=== PATIENT | male | born 1995 | race American Indian/Alaskan Native ===

== ENCOUNTER 2017-07-12 11:06 | Emergency (ER) | payer MEDICAID, OTHER, SELFPAY ==
[2017-07-12 11:32] VITALS: BP 153/90
--- NOTE | 2017-07-12 12:06 | EDM.PDOC ---
ED HPI GENERAL MEDICAL PROBLEM - General Chief Complaint: Respiratory Problem Stated Complaint: BAD COUGH AND SICK Time Seen by Provider: 07/12/17 12:02 Source of Information: Reports: Patient History Limitations: Reports: No Limitations - History of Present Illness INITIAL COMMENTS - FREE TEXT/NARRATIVE: PT HAS A COUGH WHICH IS KEEPING HIM AWAKE AT NITE. hE HAS NOT SPIKED HIGH TEMPS. Onset: Gradual Duration: Day(s): Location: Reports: Chest, Other (PT HAS A PAINFUL THROAT. ) Associated Symptoms: Reports: Cough, Shortness of Breath - Related Data Allergies Allergy/AdvReac Type Severity Reaction Status Date / Time No Known Allergies Allergy Verified 07/12/17 11:31 Home Meds: Home Meds NK [No Known Home Meds] 10/29/13 [History] Past Medical History - Past Health History Medical/Surgical History: Denies Medical/Surgical History HEENT History: Reports: Other (See Below) Other HEENT History: L lower tooth pain 4 days ago - Past Surgical History Musculoskeletal Surgical History: Reports: Arthroscopic Knee Social & Family History - Tobacco Use Smoking Status *Q: Never Smoker Second Hand Smoke Exposure: No - Caffeine Use Caffeine Use: Reports: Coffee, Energy Drinks - Alcohol Use Days Per Week of Alcohol Use: 0 - Recreational Drug Use Recreational Drug Use: No ED ROS GENERAL - Review of Systems Review Of Systems: See Below Constitutional: Reports: Fever, Chills, Malaise HEENT: Reports: Throat Pain Respiratory: Reports: No Symptoms Cardiovascular: Reports: No Symptoms Endocrine: Reports: No Symptoms GI/Abdominal: Reports: No Symptoms : Reports: No Symptoms ED EXAM, GENERAL - Physical Exam Exam: See Below Free Text/Narrative:: PT ARRIVED WITH A HISTORY OF DOING ALOT OF WHEEZING AND COUGHING MARKEDLY. hE IS RASING YELLOW SPUTUM. Exam Limited By: No Limitations General Appearance: Alert, Anxious Ears: Other ( RT DRUM IS MILDLY INFLAMED) Nose: Normal Inspection Throat/Mouth: Normal Inspection Head: Atraumatic Neck: Normal Inspection Respiratory/Chest: Decreased Breath Sounds, Wheezing Cardiovascular: Regular Rate, Rhythm GI/Abdominal: Soft, Non-Tender (Male) Exam: Deferred Rectal (Males) Exam: Deferred Back Exam: Normal Inspection Extremities: Normal Inspection Neurological: Alert, Oriented, Normal Cognition Course - Vital Signs Last Recorded V/S: Last Vital Signs Temp 36.5 C 07/12/17 11:26 Pulse 63 07/12/17 11:26 Resp 16 07/12/17 11:26 BP 153/90 H 07/12/17 11:26 Pulse Ox 96 07/12/17 11:26 - Orders/Labs/Meds Orders: Active Orders 24 hr Category Date Time Status RT Aerosol Therapy [RC] ASDIRECTED Care 07/12/17 12:09 Active STREP SCRN A RAPID W CULT CONF [RM] Stat Lab 07/12/17 12:06 Received Labs: Laboratory Tests 07/12/17 Range/Units 12:10 WBC 6.5 (4.5-11.0) K/uL RBC 5.68 (4.30-5.90) M/uL Hgb 16.0 H (12.0-15.0) g/dL Hct 46.8 (40.0-54.0) % MCV 82 (80-98) fL MCH 28 (27-31) pg MCHC 34 (32-36) % Plt Count 256 (150-400) K/uL Neut % (Auto) 60 (36-66) % Lymph % (Auto) 27 (24-44) % [place] % (Auto) 9 H (2-6) % Eos % (Auto) 3 (2-4) % Baso % (Auto) 1 (0-1) % Meds: Medications Discontinued Medications Generic Name Dose Route Start Last Admin Trade Name Freq PRN Reason Stop Dose Admin Albuterol 2.5 mg 07/12/17 12:09 07/12/17 12:20 Proventil Neb Soln NEB 07/12/17 12:10 2.5 mg ONETIME ONE Administration - Re-Assessments/Exams Free Text/Narrative Re-Assessment/Exam: 07/12/17 12:22 WBC IS NOT ELEVATED, STREPT IS NEG. Departure - Departure Time of Disposition: 12:22 Disposition: Home, Self-Care 01 Condition: Fair Clinical Impression: Bronchitis - Discharge Information Referrals: PCP,None [Primary Care Provider] - Forms: ED Department Discharge Care Plan Goals: PUSH FLUIDS, COOL MIST HUMIDFIER, ZPACK, ROBITUSSIN AC 2 TSP Q6H PRN FOR COUGH, ALBUTEROL INHALER 2 PUFS QID FOR THE NEXT WEEK. - My Orders Last 24 Hours: My Active Orders 07/12/17 12:06 STREP SCRN A RAPID W CULT CONF [RM] Stat 07/12/17 12:09 RT Aerosol Therapy [RC] ASDIRECTED - Assessment/Plan Last 24 Hours: My Active Orders 07/12/17 12:06 STREP SCRN A RAPID W CULT CONF [RM] Stat 07/12/17 12:09 RT Aerosol Therapy [RC] ASDIRECTED
[2017-07-12] MEDS ORDERED: Albuterol 0.083% 2.5 MG/3 ML Neb Soln NEB ONE (12:09)
== END 2017-07-12 12:35 | disposition home or self-care (01) ==
LOC: JP.ED 11:06
DX: J40 Bronchitis, not specified as acute or chronic (principal); Z98.890 Other specified postprocedural states
CPT/HCPCS: 36415; 85025; 87081; 87430; 94640; 99283; 99284-25

== ENCOUNTER 2020-08-20 09:34 | Emergency (ER) | payer BC, OTHER ==
[2020-08-20 09:51] VITALS: BP 150/105; PULSE 86
--- NOTE | 2020-08-20 10:18 | EDM.PDOC ---
ED HPI GENERAL MEDICAL PROBLEM - General Chief Complaint: General Stated Complaint: HAS COVID. SYMPTOMS WORSENING Time Seen by Provider: 08/20/20 10:02 Source of Information: Reports: Patient, RN Notes Reviewed History Limitations: Reports: No Limitations - History of Present Illness INITIAL COMMENTS - FREE TEXT/NARRATIVE: 25-year-old gentleman presents emergency department a complaint of cough and fatigue he was diagnosed with COVID-19 2 days prior he is requesting a azithromycin treatment Generalized Pain Score (Numeric/FACES): 5 - Related Data Allergies Allergy/AdvReac Type Severity Reaction Status Date / Time No Known Allergies Allergy Verified 07/12/17 11:31 Home Meds: Home Meds NK [No Known Home Meds] 10/29/13 [History] Past Medical History HEENT History: Reports: Other (See Below) Other HEENT History: L lower tooth pain 4 days ago - Past Surgical History Musculoskeletal Surgical History: Reports: Arthroscopic Knee Social & Family History - Tobacco Use Smoking Status *Q: Unknown Ever Smoked - Caffeine Use Caffeine Use: Reports: Coffee, Energy Drinks ED ROS GENERAL - Review of Systems Review Of Systems: See Below Constitutional: Denies: Fever, Chills Respiratory: Reports: Shortness of Breath, Cough Cardiovascular: Reports: Dyspnea on Exertion GI/Abdominal: Reports: No Symptoms ED EXAM, GENERAL - Physical Exam Exam: See Below Exam Limited By: No Limitations General Appearance: Alert, WD/WN, No Apparent Distress Throat/Mouth: Normal Lips, Normal Teeth, Normal Gums, Normal Voice, No Airway Compromise, Inflammation Head: Atraumatic, Normocephalic Neck: Normal Inspection, Supple, Non-Tender, Full Range of Motion Respiratory/Chest: No Respiratory Distress, Lungs Clear, Normal Breath Sounds, No Accessory Muscle Use, Chest Non-Tender Cardiovascular: Regular Rate, Rhythm, No Murmur Course - Vital Signs Last Recorded V/S: Last Vital Signs Temp 96.7 F L 08/20/20 09:46 Pulse 86 08/20/20 09:46 Resp 18 08/20/20 09:46 BP 150/105 H 08/20/20 09:46 Pulse Ox 95 08/20/20 09:46 Departure - Departure Time of Disposition: 10:17 Disposition: Home, Self-Care 01 Condition: Fair Clinical Impression: COVID-19 - Discharge Information Instructions: COVID-19 Frequently Asked Questions, COVID-19: How to Protect Yourself and Others - CDC, Prevent the Spread of COVID-19 if You Are Sick - CDC, COVID-19 Referrals: PCP,None [Primary Care Provider] - Additional Instructions: Continue to use Tylenol and Motrin as needed for headache and body aches, try the Tessalon Perles which can be used to help suppress the cough, return to the emergency department with worsening of symptoms Sepsis Event Note (ED) - Evaluation Sepsis Screening Result: No Definite Risk - Focused Exam Vital Signs: Vital Signs Temp Pulse Resp BP Pulse Ox 08/20/20 09:46 96.7 F L 86 18 150/105 H 95 - Assessment/Plan Plan: Assessment Acuity = acute Site and laterality = viral syndrome Etiology = COVID-19 Manifestations = dyspnea Location of injury = Home Lab values = none Plan Symptomatic care at this time prescription written for Tessalon Perles 200 mg p.o. 3 times daily PRN total #30 return to the emergency department with worsening of symptoms This note was dictated using [employer] voice recognition software please call with any questions on syntax or grammar.
== END 2020-08-20 10:30 | disposition home or self-care (01) ==
LOC: JP.ED 09:34
DX: U07.1 COVID-19 (principal)
CPT/HCPCS: 99283

== ENCOUNTER 2020-12-31 10:18 | Emergency (ER) | payer BC ==
[2020-12-31 10:41] VITALS: BP 152/99; PULSE 89
--- NOTE | 2020-12-31 11:10 | EDM.PDOC ---
ED HPI GENERAL MEDICAL PROBLEM - General Chief Complaint: Cardiovascular Problem Stated Complaint: CHEST PAIN Time Seen by Provider: 12/31/20 11:00 Source of Information: Reports: Patient History Limitations: Reports: No Limitations - History of Present Illness INITIAL COMMENTS - FREE TEXT/NARRATIVE: 25-year-old male concerned of left upper anterior chest pain for the past 4 da ys. It is sore, feels like it is bruised and hurts to move or take a deep breath. No specific trauma, no shortness of breath, no fevers or chills or cough. Onset: Gradual Duration: Day(s): (4 days of symptoms) Location: Reports: Chest (Left upper anterior chest) Associated Symptoms: Reports: No Other Symptoms Chest Pain Score (Numeric/FACES): 3 - Related Data Allergies Allergy/AdvReac Type Severity Reaction Status Date / Time No Known Allergies Allergy Verified 12/31/20 10:41 Home Meds: Home Meds NK [No Known Home Meds] 10/29/13 [History] Past Medical History - Past Health History Medical/Surgical History: Denies Medical/Surgical History HEENT History: Reports: Other (See Below) Other HEENT History: L lower tooth pain 4 days ago - Past Surgical History Musculoskeletal Surgical History: Reports: Arthroscopic Knee Social & Family History - Tobacco Use Tobacco Use Status *Q: Light Tobacco User Years of Tobacco use: 1 Packs/Tins Daily: 0 - Caffeine Use Caffeine Use: Reports: Energy Drinks - Alcohol Use Days Per Week of Alcohol Use: 2 Number of Drinks Per Day: 3 Total Drinks Per Week: 6 - Recreational Drug Use Recreational Drug Use: No ED ROS GENERAL - Review of Systems Review Of Systems: See Below Constitutional: Denies: Fever, Chills HEENT: Reports: No Symptoms Respiratory: Reports: Pleuritic Chest Pain. Denies: Shortness of Breath, Cough GI/Abdominal: Reports: No Symptoms Neurological: Reports: No Symptoms Psychiatric: Reports: Anxiety ED EXAM, GENERAL - Physical Exam Exam: See Below Free Text/Narrative:: Vitals are completely normal, respiratory rate normal and O2 sats normal Exam Limited By: No Limitations General Appearance: Alert, No Apparent Distress Neck: Supple, Non-Tender Respiratory/Chest: No Respiratory Distress, Lungs Clear, Other (Chest is tender to palpation along the left costochondral border) Cardiovascular: Regular Rate, Rhythm Neurological: Alert, Oriented Psychiatric: Anxious Skin Exam: Warm, Dry Course - Vital Signs Last Recorded V/S: Last Vital Signs Temp 97.3 F 12/31/20 10:39 Pulse 89 12/31/20 10:39 Resp 18 12/31/20 10:39 BP 152/99 H 12/31/20 10:39 Pulse Ox 96 12/31/20 10:39 - Re-Assessments/Exams Free Text/Narrative Re-Assessment/Exam: 12/31/20 11:10 2 view chest x-ray was obtained. 12/31/20 11:26 Chest x-ray is normal, patient will be discharged with a diagnosis of costochondritis. Also given naproxen to take twice daily 500 mg. Recheck next week if not improving satisfactorily, or return if worsening at any time. Departure - Departure Time of Disposition: 11:34 Disposition: Home, Self-Care 01 Clinical Impression: Acute costochondritis Instructions: Costochondritis Referrals: PCP,None [Primary Care Provider] - Forms: ED Department Discharge Care Plan Goals: Take anti-inflammatory as directed twice daily for at least 2 or 3 days, then as needed. A heating pad to the sore area may be helpful and increase activity as tolerated. Consider rechecking next week if not improving satisfactorily, or return anytime if worsening or concerns. Sepsis Event Note (ED) - Evaluation Sepsis Screening Result: No Definite Risk - Focused Exam Vital Signs: Vital Signs Temp Pulse Resp BP Pulse Ox 12/31/20 10:39 97.3 F 89 18 152/99 H 96
--- NOTE | 2020-12-31 12:26 | CR ---
CHEST: 2 view CLINICAL HISTORY:Dyspnea COMPARISON:None FINDINGS: The heart size, pulmonary vascularity and hilar structures are normal. No infiltrate effusion or pneumothorax is seen. IMPRESSION: No acute cardiopulmonary process.
== END 2020-12-31 11:34 | disposition home or self-care (01) ==
LOC: JP.ED 10:18
DX: M94.0 Chondrocostal junction syndrome [Tietze] (principal); Z72.0 Tobacco use
CPT/HCPCS: 71046; 71046-26; 99283; 99284-25

== ENCOUNTER 2022-01-28 16:02 | Inpatient (IN) | payer BC, MEDICAID ==
[2022-01-28] MEDS ORDERED: Ondansetron 4 MG/2 ML SDV IV PRN (16:55)
[2022-01-28] MEDS ORDERED: Magnesium Sulfate/Water 50 ML IV PRN (16:55)
[2022-01-28] MEDS ORDERED: Polyethylene Glycol 3350 Powder 17 GM Packet PO PRN (16:55)
[2022-01-28] MEDS ORDERED: Potassium Chloride 10% 20 MEQ/15 ML Soln 15 ML UD Cup PO PRN ×2 (16:55)
[2022-01-28] MEDS ORDERED: Sodium Phosphate 60 MMOLE in Sodium Chloride 0.9% 250 ML IV PRN (16:55)
[2022-01-28] MEDS ORDERED: 50% Dextrose in Water 50 ML Syringe IVPUSH PRN (16:55)
[2022-01-28] MEDS ORDERED: Sodium Chloride 0.9% 10 ML Syringe FLUSH PRN (16:55)
[2022-01-28] MEDS ORDERED: Acetaminophen 325 MG Tab PO PRN (16:55)
[2022-01-28] MEDS ORDERED: Nicotine Polacrilex 2 MG Gum CHEW PRN (17:03)
[2022-01-28] MEDS: Nicotine 21 MG/24 Hr Patch TRDERM SCH (17:56)
[2022-01-28] MEDS: Insulin Regular in 0.9 % NACL 100 ML IV SCH (18:40)
[2022-01-28] MEDS: Dextrose 5%-0.45% NaCl 1,000 ML IV PRN ×2 (18:45→23:13)
[2022-01-28] MEDS: Sodium Chloride 0.9% 2,000 ML IV PRN (19:32)
[2022-01-29] MEDS: Potassium Chloride 10% 20 MEQ/15 ML Soln 15 ML UD Cup PO PRN ×5 (00:05→11:48)
[2022-01-29] MEDS: Sodium Chloride 0.9% 2,000 ML IV PRN ×2 (00:58→07:09)
[2022-01-29] MEDS: Dextrose 5%-0.45% NaCl 1,000 ML IV PRN (06:03)
[2022-01-29 06:38] LABS: HEMOGLOBIN A1C 9.5 % (4.5-6.2)
[2022-01-29] MEDS: Insulin Regular in 0.9 % NACL 100 ML IV SCH (08:05)
[2022-01-29] MEDS ORDERED: Insulin Glargine,Human Rec. Analog 100 Units/ML 3 ML Pen SUBCUT SCH (11:15)
[2022-01-29] MEDS ORDERED: 50% Dextrose in Water 50 ML Syringe IV PRN (15:14)
[2022-01-29] MEDS ORDERED: Glucose Gel 15 GM in 37.5 GM Tube PO PRN (15:14)
[2022-01-29] MEDS: Insulin Lispro 100 Unit/ML 3 ML KwikPen SUBCUT SCH ×2 (16:53→21:52)
[2022-01-29] MEDS: Nicotine 21 MG/24 Hr Patch TRDERM SCH (17:03)
[2022-01-29] MEDS ORDERED: Insulin Lispro 100 Unit/ML 3 ML KwikPen SUBCUT ONE (20:36)
[2022-01-29] MEDS ORDERED: Melatonin 3 MG Tab PO SCH (21:00)
[2022-01-30 06:43] VITALS: PULSE 59
[2022-01-30] MEDS ORDERED: Insulin Glargine,Human Rec. Analog 100 Units/ML 3 ML Pen SUBCUT SCH (09:00)
[2022-01-30] MEDS: Insulin Lispro 100 Unit/ML 3 ML KwikPen SUBCUT SCH ×2 (09:45→11:55)
[2022-01-30 11:58] VITALS: BP 124/56
== END 2022-01-30 11:10 | disposition home or self-care (01) | DRG 638 ==
LOC: JP.ICU 16:29
PROVIDERS: ADMIT Hospitalist; ATTEND Hospitalist
DX: E10.10 Type 1 diabetes mellitus with ketoacidosis without coma (principal); Z68.42 Body mass index [BMI] 45.0-49.9, adult; E66.9 Obesity, unspecified; F17.200 Nicotine dependence, unspecified, uncomplicated; Z71.6 Tobacco abuse counseling; E78.5 Hyperlipidemia, unspecified
CPT/HCPCS: 36415; 80048; 80053; 80061; 82947; 83036; 83605; 83735; 84100; 84132; 85025; 99222; 99232; 99238; A9270-GY; J1815; J1815-GY; J7030; J7042

== ENCOUNTER 2024-11-30 20:50 | Emergency (ER) | payer BC ==
[2024-11-30 22:10] LABS: HEMATOCRIT 46.3 % (38.4-49.7); HEMOGLOBIN 16.4 g/dL (12.9-16.9); MEAN CORPUSCULAR HEMOGLOBIN 31.5 pg (31.6-35.5); MEAN CORPUSCULAR HGB CONC 35.4 g/dL (31.6-35.5); RED BLOOD CELL COUNT 5.2 M/uL (4.14-5.76); WHITE BLOOD CELL COUNT,WBC 8.4 K/uL (3.2-11.0)
[2024-11-30 22:17] LABS: AMPHETAMINES SCREEN, URINE NEGATIVE (NEGATIVE); BARBITURATE SCREEN,URINE NEGATIVE (NEGATIVE); BENZODIAZEPINES SCREEN,URINE NEGATIVE (NEGATIVE); METHADONE SCREEN, URINE NEGATIVE (NEGATIVE); METHAMPHETAMINES SCREEN, URINE NEGATIVE (NEGATIVE)
[2024-11-30 22:18] LABS: OXYCODONE SCREEN,URINE NEGATIVE (NEGATIVE); PROPOXYPHENE SCREEN,URINE NEGATIVE (NEGATIVE); THC SCREEN,URINE 50 NG/ML NEGATIVE (NEGATIVE)
[2024-11-30 22:31] LABS: A/G RATIO 1.2 (1.2-2.2); ALANINE AMINOTRANSFERASE,ALT 96 U/L (12-78); ALBUMIN 4.4 g/dL (3.4-5.0); ALKALINE PHOSPHATASE 69 U/L (46-116); ASPARTATE AMNIOTRANSFERASE,AST 94 U/L (15-37); BILIRUBIN TOTAL 1.2 mg/dL (0.2-1.0); BLOOD UREA NITROGEN,BUN 12 mg/dL (7-18); CALCIUM 9.4 mg/dL (8.5-10.1); CARBON DIOXIDE,CO2 30 mmol/L (21-32); CHLORIDE,CL 100 mmol/L (100-108); CREATININE 1.1 mg/dL (0.8-1.3); EST CRCL DRUG DOSING (CG) 111.98 mL/min; ESTIMATED GFR 93 mL/min (>60); GLUCOSE RANDOM 107 mg/dL (74-106); POTASSIUM,K 3.8 mmol/L (3.6-5.2); PROTEIN TOTAL,TP 8.2 g/dL (6.4-8.2); SODIUM,NA 140 mmol/L (140-148)
[2024-12-01] VITALS: BP 155/80; PULSE 95
== END 2024-12-01 00:02 ==
LOC: EEVIPCON 20:50 → JP.ED 20:50
DX: F10.10 Alcohol abuse, uncomplicated (principal); F17.210 Nicotine dependence, cigarettes, uncomplicated; Y90.0 Blood alcohol level of less than 20 mg/100 ml
CPT/HCPCS: 36415; 80053; 80305-QW; 80307; 85027; 99284

== ENCOUNTER 2025-02-18 19:45 | Emergency (ER) | payer SELFPAY ==
[2025-02-18 19:56] VITALS: BP 137/95; PULSE 110
[2025-02-18 20:11] LABS: BASOPHILS PERCENT AUTO 0.5 % (0.1-1.3); EOSINOPHILS ABSOLUTE AUTO 0.03 K/uL (0.00-0.40); EOSINOPHILS PERCENT AUTO 0.7 % (0.0-5.4); HEMATOCRIT 45.2 % (38.4-49.7); IMMATURE GRAN PERCENT AUTO 0.2 % (0.0-0.7); LYMPHOCYTES ABSOLUTE AUTO 1.76 K/uL (0.8-3.3); LYMPHOCYTES PERCENT AUTO 43.6 % (11.4-47.7); MEAN CORPUSCULAR HEMOGLOBIN 31.4 pg (31.6-35.5); MEAN CORPUSCULAR HGB CONC 35.4 g/dL (31.6-35.5); MEAN CORPUSCULAR VOLUME 88.8 fL (81.4-99.0); MONOCYTES ABSOLUTE AUTO 0.42 K/uL (0.20-0.90); MONOCYTES PERCENT AUTO 10.4 % (3.3-12.6); NEUTROPHILS PERCENT AUTO 44.6 % (40.0-78.1); PLATELET COUNT,PLT 195 K/uL (130-375); RED BLOOD CELL COUNT 5.09 M/uL (4.14-5.76)
[2025-02-18 20:13] LABS: BASOPHILS ABSOLUTE AUTO 0.02 K/uL (0.00-0.10); IMMATURE GRAN ABSOLUTE AUTO 0.01 K/uL (0.00-0.23)
[2025-02-18] MEDS: LORazepam 1 MG Tab PO ONE (20:27)
[2025-02-18] MEDS: Ondansetron 4 MG Tab.DIS PO ONE (20:27)
[2025-02-18 20:32] LABS: ALANINE AMINOTRANSFERASE,ALT 55 U/L (12-78); ALBUMIN 3.9 g/dL (3.4-5.0); ALKALINE PHOSPHATASE 76 U/L (46-116); ANION GAP 16.2 mmol/L (5.0-14.0); ASPARTATE AMNIOTRANSFERASE,AST 52 U/L (15-37); BILIRUBIN TOTAL 0.5 mg/dL (0.2-1.0); BLOOD UREA NITROGEN,BUN 11 mg/dL (7-18); CALCIUM 8.8 mg/dL (8.5-10.1); CARBON DIOXIDE,CO2 25 mmol/L (21-32); CHLORIDE,CL 101 mmol/L (100-108); EST CRCL DRUG DOSING (CG) 123.18 mL/min; ESTIMATED GFR 104 mL/min (>60); GLUCOSE RANDOM 186 mg/dL (74-106); POTASSIUM,K 3.7 mmol/L (3.6-5.2); PROTEIN TOTAL,TP 7.9 g/dL (6.4-8.2); SODIUM,NA 142 mmol/L (140-148)
[2025-02-18 20:42] LABS: AMPHETAMINES SCREEN, URINE NEGATIVE (NEGATIVE); BARBITURATE SCREEN,URINE NEGATIVE (NEGATIVE); BENZODIAZEPINES SCREEN,URINE NEGATIVE (NEGATIVE); METHADONE SCREEN, URINE NEGATIVE (NEGATIVE); METHAMPHETAMINES SCREEN, URINE NEGATIVE (NEGATIVE); OXYCODONE SCREEN,URINE NEGATIVE (NEGATIVE); PROPOXYPHENE SCREEN,URINE NEGATIVE (NEGATIVE); THC SCREEN,URINE 50 NG/ML NEGATIVE (NEGATIVE)
== END 2025-02-18 21:09 | disposition other institution (70) ==
LOC: JP.ED 19:45
DX: F10.139 Alcohol abuse with withdrawal, unspecified (principal); E11.9 Type 2 diabetes mellitus without complications; F17.210 Nicotine dependence, cigarettes, uncomplicated; Z79.84 Long term (current) use of oral hypoglycemic drugs; Z79.899 Other long term (current) drug therapy; Y90.9 Presence of alcohol in blood, level not specified
CPT/HCPCS: 36415; 80053; 80305; 80307; 85025; 99284; 99285; A9270; Q0162

== ENCOUNTER 2025-04-19 19:52 | Emergency (ER) | payer SELFPAY ==
[2025-04-19 21:06] LABS: AMPHETAMINES SCREEN, URINE NEGATIVE (NEGATIVE); BARBITURATE SCREEN,URINE NEGATIVE (NEGATIVE); BENZODIAZEPINES SCREEN,URINE NEGATIVE (NEGATIVE); METHADONE SCREEN, URINE NEGATIVE (NEGATIVE); METHAMPHETAMINES SCREEN, URINE NEGATIVE (NEGATIVE); OXYCODONE SCREEN,URINE NEGATIVE (NEGATIVE); PROPOXYPHENE SCREEN,URINE NEGATIVE (NEGATIVE); THC SCREEN,URINE 50 NG/ML NEGATIVE (NEGATIVE)
[2025-04-19 21:32] LABS: CALCIUM 9.7 mg/dL (8.5-10.1); EST CRCL DRUG DOSING (CG) 122.07 mL/min
[2025-04-19 22:16] VITALS: BP 152/98; PULSE 84
== END 2025-04-19 22:52 | disposition other institution (70) ==
LOC: JP.ED 19:52
DX: F10.20 Alcohol dependence, uncomplicated (principal); E11.9 Type 2 diabetes mellitus without complications; F17.210 Nicotine dependence, cigarettes, uncomplicated; Z79.84 Long term (current) use of oral hypoglycemic drugs; Z79.899 Other long term (current) drug therapy; Y90.9 Presence of alcohol in blood, level not specified
CPT/HCPCS: 36415; 80048; 80305-QW; 80307; 99283

== ENCOUNTER 2025-06-10 18:16 | Emergency (ER) | payer SELFPAY ==
[2025-06-10 19:58] VITALS: BP 152/100; PULSE 110
[2025-06-10 20:14] LABS: AMPHETAMINES SCREEN, URINE NEGATIVE (NEGATIVE); METHADONE SCREEN, URINE NEGATIVE (NEGATIVE); METHAMPHETAMINES SCREEN, URINE NEGATIVE (NEGATIVE); OXYCODONE SCREEN,URINE NEGATIVE (NEGATIVE); PROPOXYPHENE SCREEN,URINE NEGATIVE (NEGATIVE); THC SCREEN,URINE 50 NG/ML NEGATIVE (NEGATIVE)
== END 2025-06-10 22:50 | disposition other institution (70) ==
LOC: JP.ED 18:16
DX: F10.10 Alcohol abuse, uncomplicated (principal); E11.9 Type 2 diabetes mellitus without complications; F17.210 Nicotine dependence, cigarettes, uncomplicated; Y90.9 Presence of alcohol in blood, level not specified; Z79.899 Other long term (current) drug therapy; Z79.84 Long term (current) use of oral hypoglycemic drugs
CPT/HCPCS: 36415; 80305-QW; 80307; 99284; 99285